=== PATIENT | male | born 1975 | race Caucasian/White ===

== ENCOUNTER 2018-12-24 01:48 | Inpatient (IN) | payer SELFPAY ==
[~2018-12-24] VITALS: Ht 175.3 cm; Wt 85.0 kg
[2018-12-24] MEDS ORDERED: IV NORMAL SALINE 1000ML BAG 1,000 ML IV ONE (02:15)
[2018-12-24 02:16] LABS: BASO % 0 % (0-3); EOS % 0 % (0-3); HEMATOCRIT 40.3 % (39.0-53.0); HEMOGLOBIN 12.9 g/dL (13.0-17.5); LYMPH # 1.1 x10^3/uL (1.0-4.8); LYMPH % 10 % (24-48); MEAN CORPUSCULAR HEMOGLOBIN 19 pg (25-35); MEAN CORPUSCULAR HGB CONC 32 g/dL (31-37); MEAN CORPUSCULAR VOLUME 59 fL (79-100); MONO # 0.7 x10^3/uL (0.0-1.1); MONO % 6 % (0-9); NEUT # 9.4 x10^3uL (1.8-7.7); NEUT % 84 % (31-73); PLATELET COUNT 171 x10^3/uL (140-400); RED BLOOD COUNT 6.78 x10^6/uL (4.30-5.70); RED CELL DISTRIBUTION WIDTH 16.4 % (11.5-14.5); WHITE BLOOD COUNT 11.2 x10^3/uL (4.0-11.0)
[2018-12-24 02:28] LABS: ALBUMIN 4.4 g/dL (3.4-5.0); ALBUMIN/GLOBULIN RATIO 1.2 (1.0-1.7); CALCIUM 11.1 mg/dL (8.5-10.1); CREATININE 0.7 mg/dL (0.7-1.3); GFR 123.7; TOTAL BILIRUBIN 5.6 mg/dL (0.2-1.0)
[2018-12-24 02:30] LABS: POTASSIUM 2.8 mmol/L (3.5-5.1)
[2018-12-24 02:43] LABS: ANISOCYTOSIS SLIGHT; HYPOCHROMIA MARKED; MICROCYTOSIS MARKED; PLT ESTIMATE ADEQUATE (ADEQUATE); POLYCHROMASIA SLIGHT
[2018-12-24 02:44] LABS: TARGET CELLS OCC; TEAR DROP CELLS FEW
[2018-12-24] MEDS ORDERED: MORPHINE SULFATE 4 MG/ML VIAL. IV PRN (03:30)
[2018-12-24] MEDS ORDERED: LORazepam 1 MG TABLET PO PRN (03:30)
[2018-12-24] MEDS ORDERED: cloNIDine HCL 0.1 MG TABLET PO PRN (03:30)
[2018-12-24] MEDS ORDERED: ONDANSETRON PF 4 MG/2 ML VIAL. IV PRN (03:30)
[2018-12-24] MEDS ORDERED: chlordiazePOXIDE HCL 25 MG CAPSULE PO PRN ×2 (03:30)
[2018-12-24] MEDS ORDERED: MULTIVIT INFUSN,ADULT 4,VIT K 10 ML, THIAMINE INJ 100 MG, FOLIC ACID INJ 1 MG in IV NOR... IV ONE (03:30)
[2018-12-24] MEDS ORDERED: HALOPERIDOL LACTATE 5 MG/ML VIAL. IVP PRN (03:30)
[2018-12-24] MEDS ORDERED: POTASSIUM CHLORIDE 10MEQ 100 ML IV ONE (03:30)
--- NOTE | 2018-12-24 03:47 | PHYS DOC ---
Past Medical History Past Medical History: Hypertension Additional Past Medical Histor: NON COMPLIANT Past Surgical History: No Surgical History Additional Information: CHEWS TOBACCO Alcohol Use: Heavy Drug Use: None Adult General Chief Complaint Chief Complaint: ALCOHOL INTOXICATION HPI HPI 43-year-old male presents with a chief complaint of of nausea vomiting AND hallucination. Patient states he is on day 3 of sobriety. Patient was on a 6 day binge of vodka. Review of Systems Review of Systems Constitutional: Denies fever or chills [] Eyes: Denies change in visual acuity, redness, or eye pain [] HENT: Denies nasal congestion or sore throat [] Respiratory: Denies cough or shortness of breath [] Cardiovascular: No additional information not addressed in HPI [] GI: Denies abdominal pain, nausea, vomiting, bloody stools or diarrhea [] : Denies dysuria or hematuria [] Musculoskeletal: Denies back pain or joint pain [] Integument: Denies rash or skin lesions [] Neurologic: Denies headache, focal weakness or sensory changes [] Endocrine: Denies polyuria or polydipsia [] All other systems were reviewed and found to be within normal limits, except as documented in this note. Current Medications Current Medications Current Medications Medications (Trade) Dose Ordered Sig/Rama Start Time Stop Time Status Last Admin Dose Admin Chlordiazepoxide (Librium) 100 mg PRN Q1HR PRN 12/24/18 03:30 Clonidine HCl (Catapres) 0.1 mg PRN Q1HR PRN 12/24/18 03:30 Haloperidol Lactate (Haldol Inj) 5 mg PRN Q4HRS PRN 12/24/18 03:30 Lorazepam (Ativan) 4 mg PRN Q15MIN PRN 12/24/18 03:30 Morphine Sulfate (Morphine Sulfate) 2 mg PRN Q2HR PRN 12/24/18 03:30 12/25/18 03:29 Multivitamins 10 ml/Thiamine HCl 100 mg/Folic Acid 1 mg/Sodium Chloride 1,011.2 ml @ 1,000.088 mls/hr 1X ONCE 12/24/18 03:30 12/24/18 04:30 Ondansetron HCl (Zofran) 4 mg PRN Q8HRS PRN 12/24/18 03:30 12/25/18 03:29 Potassium Chloride/Water 100 ml @ 100 mls/hr 1X ONCE 12/24/18 03:30 12/24/18 04:29 12/24/18 03:41 100 MLS/HR Sodium Chloride 1,000 ml @ 1,000 mls/hr 1X ONCE 12/24/18 02:15 12/24/18 03:14 DC 12/24/18 02:12 1,000 MLS/HR Allergies Allergies Allergies Coded Allergies Type Severity Reaction Last Updated Verified No Known Drug Allergies 12/24/18 No Physical Exam Physical Exam Constitutional: Well developed, well nourished, no acute distress, non-toxic appearance. [] HENT: Normocephalic, atraumatic, bilateral external ears normal, oropharynx moist, no oral exudates, nose normal. [] Eyes: PERRLA, EOMI, conjunctiva normal, no discharge. [] Neck: Normal range of motion, no tenderness, supple, no stridor. [] Cardiovascular:Heart rate regular rhythm, no murmur [] Lungs & Thorax: Bilateral breath sounds clear to auscultation [] Abdomen: Bowel sounds normal, soft, no tenderness, no masses, no pulsatile masses. [] Skin: Warm, dry, no erythema, no rash. [] Back: No tenderness, no CVA tenderness. [] Extremities: No tenderness, no cyanosis, no clubbing, ROM intact, no edema. [] Neurologic: Alert and oriented X 3, normal motor function, normal sensory function, no focal deficits noted. [] Psychologic: Affect normal, judgement normal, mood normal. [] Current Patient Data Vital Signs Vital Signs Date Time Temp Pulse Resp B/P (MAP) Pulse Ox O2 Delivery O2 Flow Rate FiO2 12/24/18 01:48 100.6 122 20 149/105 (120) 97 Room Air 100.6 Lab Values Laboratory Tests Test 12/24/18 02:00 White Blood Count 11.2 x10^3/uL (4.0-11.0) H Red Blood Count 6.78 x10^6/uL (4.30-5.70) H Hemoglobin 12.9 g/dL (13.0-17.5) L Hematocrit 40.3 % (39.0-53.0) Mean Corpuscular Volume 59 fL (79-100) L Mean Corpuscular Hemoglobin 19 pg (25-35) L Mean Corpuscular Hemoglobin Concent 32 g/dL (31-37) Red Cell Distribution Width 16.4 % (11.5-14.5) H Platelet Count 171 x10^3/uL (140-400) Neutrophils (%) (Auto) 84 % (31-73) H Lymphocytes (%) (Auto) 10 % (24-48) L Monocytes (%) (Auto) 6 % (0-9) Eosinophils (%) (Auto) 0 % (0-3) Basophils (%) (Auto) 0 % (0-3) Neutrophils # (Auto) 9.4 x10^3uL (1.8-7.7) H Lymphocytes # (Auto) 1.1 x10^3/uL (1.0-4.8) Monocytes # (Auto) 0.7 x10^3/uL (0.0-1.1) Eosinophils # (Auto) 0.0 x10^3/uL (0.0-0.7) Basophils # (Auto) 0.0 x10^3/uL (0.0-0.2) Platelet Estimate Adequate (ADEQUATE) Polychromasia Slight Hypochromasia Marked Basophilic Stippling Present Anisocytosis Slight Microcytosis Marked Target Cells Occ Tear Drop Cells Few Sodium Level 133 mmol/L (136-145) L Potassium Level 2.8 mmol/L (3.5-5.1) *L Chloride Level 89 mmol/L (98-107) L Carbon Dioxide Level 33 mmol/L (21-32) H Anion Gap 11 (6-14) Blood Urea Nitrogen 17 mg/dL (8-26) Creatinine 0.7 mg/dL (0.7-1.3) Estimated GFR (Cockcroft-Gault) 123.7 BUN/Creatinine Ratio 24 (6-20) H Glucose Level 149 mg/dL (70-99) H Calcium Level 11.1 mg/dL (8.5-10.1) H Total Bilirubin 5.6 mg/dL (0.2-1.0) H Aspartate Amino Transferase (AST) 111 U/L (15-37) H Alanine Aminotransferase (ALT) 52 U/L (16-63) Alkaline Phosphatase 84 U/L (46-116) Total Protein 8.0 g/dL (6.4-8.2) Albumin 4.4 g/dL (3.4-5.0) Albumin/Globulin Ratio 1.2 (1.0-1.7) Lipase 557 U/L (73-393) H Ethyl Alcohol Level < 10 mg/dL (0-10) Laboratory Tests 12/24/18 02:00 Laboratory Tests 12/24/18 02:00 EKG EKG [] Radiology/Procedures Radiology/Procedures [] Course & Med Decision Making Course & Med Decision Making Pertinent Labs and Imaging studies reviewed. (See chart for details) [] Dragon Disclaimer Dragon Disclaimer This electronic medical record was generated, in whole or in part, using a voice recognition dictation system. Departure Departure Referrals: NO PCP (PCP) MARCELLE GILLIAM DO Dec 24, 2018 03:47
[2018-12-24 06:00] VITALS: BP 171/110
[2018-12-24 06:48] LABS: AMPHETAMINE/METHAMPHETAMINE NEG (NEG); BARBITURATES NEG (NEG); BENZODIAZEPINES NEG (NEG); CANNABINOIDS NEG (NEG); COCAINE NEG (NEG); METHADONE NEG (NEG); OPIATES NEG (NEG); PHENCYCLIDINE NEG (NEG)
[2018-12-24 07:45] VITALS: BP 148/100
[2018-12-24] MEDS: LORazepam 1 MG TABLET PO PRN ×2 (07:57→22:00)
[2018-12-24 11:00] VITALS: BP 125/73
--- NOTE | 2018-12-24 12:24 | PDOC1 ---
History and Physical Date of Admission Date of Admission DATE: 12/24/18 TIME: 12:24 Identification/Chief Complaint Chief Complaint SEEN IN ER WITH chief complaint of of nausea vomiting AND hallucination. states he is on day 3 of sobriety. Patient was on a 6 day binge of vodka. IS SCHEDULED TO GO TO [facility] THIS WEEK FOR DUI LAST YEAR CURRENTLY WORKS A [employer] Past Medical History Past Medical History Past Medical History Past Medical History: Hypertension Additional Past Medical Histor: NON COMPLIANT Past Surgical History: No Surgical History Additional Information: CHEWS TOBACCO Alcohol Use: Heavy Drug Use: None FAMILY HX ALCOHOL ABUSE Psych: Anxiety, Addictions Endocrine: No pertinent hx Family History Family History: Alcohol Abuse Social History Smoke: <1 pack per day ALCOHOL: heavy Drugs: None Current Medications Current Medications Current Medications Sodium Chloride 1,000 ml @ 1,000 mls/hr 1X ONCE IV Last administered on at 02:12; Start 12/24/18 at 02:15; Stop 12/24/18 at 03:14; Status DC Multivitamins 10 ml/Thiamine HCl 100 mg/Folic Acid 1 mg/Sodium Chloride 1,011.2 ml @ 1,000.088 mls/hr 1X ONCE IV Last administered on 12/24/18at 05:41; Start 12/24/18 at 03:30; Stop 12/24/18 at 04:30; Status DC Potassium Chloride/Water 100 ml @ 100 mls/hr 1X ONCE IV Last administered on 12/24/18at 03:41; Start 12/24/18 at 03:30; Stop 12/24/18 at 04:29; Status DC Ondansetron HCl (Zofran) 4 mg PRN Q8HRS PRN IV NAUSEA/VOMITING; Start 12/24/18 at 03:30; Stop 12/25/18 at 03:29 Morphine Sulfate (Morphine Sulfate) 2 mg PRN Q2HR PRN IV PAIN; Start 12/24/18 at 03:30; Stop 12/25/18 at 03:29 Chlordiazepoxide (Librium) 50 mg PRN Q1HR PRN PO For CIWA 8-14, 2nd choice; Start 12/24/18 at 03:30 Chlordiazepoxide (Librium) 100 mg PRN Q1HR PRN PO For CIWA 15 or >, 2nd choice ; Start 12/24/18 at 03:30 Lorazepam (Ativan) 4 mg PRN Q1HR PRN PO For CIWA 8-14 Last administered on 12/24at 07:57; Start 12/24/18 at 03:30 Lorazepam (Ativan) 8 mg PRN Q1HR PRN PO For CIWA 15 or greater; Start 12/24/18 at 03:30 Lorazepam (Ativan) 2 mg PRN Q1HR PRN IV For CIWA 8-14; Start 12/24/18 at 03:30 Lorazepam (Ativan) 4 mg PRN Q1HR PRN IV For CIWA 15 or greater; Start 12/24/18 at 03:30 Haloperidol Lactate (Haldol Inj) 5 mg PRN Q4HRS PRN IVP Hallucinatns,Confusn, Delirium; Start 12/24/18 at 03:30 Clonidine HCl (Catapres) 0.1 mg PRN Q1HR PRN PO SBP > 180 or DBP > 100, MRX3 Last administered on 12/24/18at 06:23; Start 12/24/18 at 03:30 Lorazepam (Ativan) 2 mg PRN Q15MIN PRN IV ANXIETY / AGITATION; Start 12/24/18 at 03:30; Status Cancel Lorazepam (Ativan) 4 mg PRN Q15MIN PRN IV ANXIETY / AGITATION; Start 12/24/18 at 03:30; Status Cancel Allergies Allergies: Coded Allergies: No Known Drug Allergies (Unverified , 12/24/18) ROS Review of System Review of Systems Review of Systems Constitutional: Denies fever or chills [] lethargic lying in bed Eyes: Denies change in visual acuity, redness, or eye pain [] HENT: Denies nasal congestion or sore throat [] Respiratory: Denies cough or shortness of breath [] Cardiovascular: No additional information not addressed in HPI [] GI: Denies abdominal pain, nausea, vomiting, bloody stools or diarrhea [] : Denies dysuria or hematuria [] Musculoskeletal: Denies back pain or joint pain [] Integument: Denies rash or skin lesions [] Neurologic: Denies headache, focal weakness or sensory changes [] Endocrine: Denies polyuria or polydipsia [] 14 pt systems were reviewed and found to be within normal limits, except as documented General: YES: Fatigue, Malaise PSYCHOLOGICAL ROS: YES: Hallucinations HEENT: No: Heacaches, Visual Changes, Hearing change, Nasal congestion, Nasal discharge, Oral lesions, Sinus pain, Sore Throat, Epistaxis, Sneezing, Snoring, Tinnitus, Vertigo, Vocal changes, Other ALLERGY AND IMMUNOLOGY: No: Hives, Insect Bite Sensitivity, Itchy/Watery Eyes, Nasal Congestion, Post Nasal Drip, Seasonal Allergies, Other Respiratory: No: Cough, Hemoptysis, Orthopnea, Pleuritic Pain, Shortness of breath, SOB with excertion, Sputum Changes, Stridor, Tachypnea, Wheezing, Other Gastrointestinal: Yes Nausea Musculoskeletal: Yes Gait Disturbance Neurological: Yes Confusion, Yes Dizziness Physical Exam Physical Exam Physical Exam Physical Exam Constitutional: Well developed, well nourished, mild acute distress, non-toxic appearance. [] HENT: Normocephalic, atraumatic, bilateral external ears normal, oropharynx moist, no oral exudates, nose normal. [] Eyes: PERRLA, EOMI, conjunctiva normal, no discharge. [] Neck: Normal range of motion, no tenderness, supple, no stridor. [] Cardiovascular:tachy regular rhythm, no murmur [] Lungs & Thorax: Bilateral breath sounds clear to auscultation [] Abdomen: Bowel sounds normal, soft, no tenderness, no masses, no pulsatile masses. [] Skin: Warm, dry, no erythema, no rash. [] Back: No tenderness, no CVA tenderness. [] Extremities: No tenderness, no cyanosis, no clubbing, ROM intact, no edema. [] Neurologic: Alert and oriented X 3, normal motor function, normal sensory function, no focal deficits noted. [] Psychologic: Affect normal, judgement poor, mood normal. [] General: Oriented X3 HEENT: Atraumatic Lungs: Clear to auscultation Heart: RRR, no rubs Abdomen: Soft Extremities: No clubbing, No cyanosis Neuro: Normal speech, Cranial nerves 3-12 NL Vitals Vitals Vital Signs Date Time Temp Pulse Resp B/P (MAP) Pulse Ox O2 Delivery O2 Flow Rate FiO2 12/24/18 11:00 97.6 86 18 125/73 (90) 96 Room Air 97.6 Labs Labs Laboratory Tests Test 12/24/18 02:00 12/24/18 06:25 White Blood Count 11.2 x10^3/uL (4.0-11.0) Red Blood Count 6.78 x10^6/uL (4.30-5.70) Hemoglobin 12.9 g/dL (13.0-17.5) Hematocrit 40.3 % (39.0-53.0) Mean Corpuscular Volume 59 fL (79-100) Mean Corpuscular Hemoglobin 19 pg (25-35) Mean Corpuscular Hemoglobin Concent 32 g/dL (31-37) Red Cell Distribution Width 16.4 % (11.5-14.5) Platelet Count 171 x10^3/uL (140-400) Neutrophils (%) (Auto) 84 % (31-73) Lymphocytes (%) (Auto) 10 % (24-48) Monocytes (%) (Auto) 6 % (0-9) Eosinophils (%) (Auto) 0 % (0-3) Basophils (%) (Auto) 0 % (0-3) Neutrophils # (Auto) 9.4 x10^3uL (1.8-7.7) Lymphocytes # (Auto) 1.1 x10^3/uL (1.0-4.8) Monocytes # (Auto) 0.7 x10^3/uL (0.0-1.1) Eosinophils # (Auto) 0.0 x10^3/uL (0.0-0.7) Basophils # (Auto) 0.0 x10^3/uL (0.0-0.2) Platelet Estimate Adequate (ADEQUATE) Polychromasia Slight Hypochromasia Marked Basophilic Stippling Present Anisocytosis Slight Microcytosis Marked Target Cells Occ Tear Drop Cells Few Sodium Level 133 mmol/L (136-145) Potassium Level 2.8 mmol/L (3.5-5.1) Chloride Level 89 mmol/L (98-107) Carbon Dioxide Level 33 mmol/L (21-32) Anion Gap 11 (6-14) Blood Urea Nitrogen 17 mg/dL (8-26) Creatinine 0.7 mg/dL (0.7-1.3) Estimated GFR (Cockcroft-Gault) 123.7 BUN/Creatinine Ratio 24 (6-20) Glucose Level 149 mg/dL (70-99) Calcium Level 11.1 mg/dL (8.5-10.1) Total Bilirubin 5.6 mg/dL (0.2-1.0) Aspartate Amino Transf (AST/SGOT) 111 U/L (15-37) Alanine Aminotransferase (ALT/SGPT) 52 U/L (16-63) Alkaline Phosphatase 84 U/L (46-116) Total Protein 8.0 g/dL (6.4-8.2) Albumin 4.4 g/dL (3.4-5.0) Albumin/Globulin Ratio 1.2 (1.0-1.7) Lipase 557 U/L (73-393) Ethyl Alcohol Level < 10 mg/dL (0-10) Urine Opiates Screen Neg (NEG) Urine Methadone Screen Neg (NEG) Urine Barbiturates Neg (NEG) Urine Phencyclidine Screen Neg (NEG) Urine Amphetamine/Methamphetamine Neg (NEG) Urine Benzodiazepines Screen Neg (NEG) Urine Cocaine Screen Neg (NEG) Urine Cannabinoids Screen Neg (NEG) Urine Ethyl Alcohol Neg (NEG) Laboratory Tests Test 12/24/18 02:00 12/24/18 06:25 White Blood Count 11.2 x10^3/uL (4.0-11.0) Red Blood Count 6.78 x10^6/uL (4.30-5.70) Hemoglobin 12.9 g/dL (13.0-17.5) Hematocrit 40.3 % (39.0-53.0) Mean Corpuscular Volume 59 fL (79-100) Mean Corpuscular Hemoglobin 19 pg (25-35) Mean Corpuscular Hemoglobin Concent 32 g/dL (31-37) Red Cell Distribution Width 16.4 % (11.5-14.5) Platelet Count 171 x10^3/uL (140-400) Neutrophils (%) (Auto) 84 % (31-73) Lymphocytes (%) (Auto) 10 % (24-48) Monocytes (%) (Auto) 6 % (0-9) Eosinophils (%) (Auto) 0 % (0-3) Basophils (%) (Auto) 0 % (0-3) Neutrophils # (Auto) 9.4 x10^3uL (1.8-7.7) Lymphocytes # (Auto) 1.1 x10^3/uL (1.0-4.8) Monocytes # (Auto) 0.7 x10^3/uL (0.0-1.1) Eosinophils # (Auto) 0.0 x10^3/uL (0.0-0.7) Basophils # (Auto) 0.0 x10^3/uL (0.0-0.2) Platelet Estimate Adequate (ADEQUATE) Polychromasia Slight Hypochromasia Marked Basophilic Stippling Present Anisocytosis Slight Microcytosis Marked Target Cells Occ Tear Drop Cells Few Sodium Level 133 mmol/L (136-145) Potassium Level 2.8 mmol/L (3.5-5.1) Chloride Level 89 mmol/L (98-107) Carbon Dioxide Level 33 mmol/L (21-32) Anion Gap 11 (6-14) Blood Urea Nitrogen 17 mg/dL (8-26) Creatinine 0.7 mg/dL (0.7-1.3) Estimated GFR (Cockcroft-Gault) 123.7 BUN/Creatinine Ratio 24 (6-20) Glucose Level 149 mg/dL (70-99) Calcium Level 11.1 mg/dL (8.5-10.1) Total Bilirubin 5.6 mg/dL (0.2-1.0) Aspartate Amino Transf (AST/SGOT) 111 U/L (15-37) Alanine Aminotransferase (ALT/SGPT) 52 U/L (16-63) Alkaline Phosphatase 84 U/L (46-116) Total Protein 8.0 g/dL (6.4-8.2) Albumin 4.4 g/dL (3.4-5.0) Albumin/Globulin Ratio 1.2 (1.0-1.7) Lipase 557 U/L (73-393) Ethyl Alcohol Level < 10 mg/dL (0-10) Urine Opiates Screen Neg (NEG) Urine Methadone Screen Neg (NEG) Urine Barbiturates Neg (NEG) Urine Phencyclidine Screen Neg (NEG) Urine Amphetamine/Methamphetamine Neg (NEG) Urine Benzodiazepines Screen Neg (NEG) Urine Cocaine Screen Neg (NEG) Urine Cannabinoids Screen Neg (NEG) Urine Ethyl Alcohol Neg (NEG) VTE Prophylaxis Ordered VTE Prophylaxis Devices: Yes VTE Pharmacological Prophylaxi: Yes Assessment/Plan Assessment/Plan IMPRESSION SEVERE ALCOHOL ABUSE AT RISK FOR DUE TO ALCOHOL INTAKE Alcohol associated with hepatitis severe hypokalemia transaminitis alcohol associated pancreatitis plan admit banana bag alcohol withdrawal precautions iv protonix tele neurochecks q 4 hrs hepatitis acute dx panel dvt prophylaxis iv hydrate abd SRAVAN Rosas MD Dec 24, 2018 12:24
--- NOTE | 2018-12-24 14:07 | NUR ---
SS following for discharge planning. SS reviewed pt chart. Pt is from home and is currently on room air. No discharge needs noted at this time. SS will continue to follow for pending discharge needs.
[2018-12-24 14:46] VITALS: BP 126/86
[2018-12-24 19:30] VITALS: BP 121/81
[2018-12-24 23:34] VITALS: BP 120/79
[2018-12-25 03:10] VITALS: BP 122/84
--- NOTE | 2018-12-25 03:33 | RAD ---
Indication:TRANSAMINITIS TECHNIQUE: Grayscale, color Doppler and spectral waveform is of the abdomen obtained. COMPARISON:None FINDINGS:Visualized pancreas is within normal limits. Pancreatic tail not visualized during bowel gas. No aortic aneurysm. No gallstones, pericholecystic fluid or gallbladder wall thickening. IVC is patent. Main portal vein is patent. Liver measures 15 cm in longest dimension with diffusely increased echogenicity. Right kidney measures 13.4 cm in length without hydronephrosis. CBD measures 4 mm in diameter and is within normal limits. Spleen measures 12 cm in longest dimension and is normal in size. Left kidney measures 12.2 cm in length without hydronephrosis. IMPRESSION: 1. Hepatic steatosis. 2. No cholelithiasis or sonographic evidence of acute cholecystitis. Electronically signed by: Yfn Stewart DO (12/25/2018 3:30 AM) [facility]
[2018-12-25 04:53] LABS: BASO # 0.1 x10^3/uL (0.0-0.2); BASO % 1 % (0-3); EOS # 0.1 x10^3/uL (0.0-0.7); EOS % 2 % (0-3); HEMATOCRIT 35.8 % (39.0-53.0); HEMOGLOBIN 11.4 g/dL (13.0-17.5); LYMPH # 2.8 x10^3/uL (1.0-4.8); LYMPH % 33 % (24-48); MEAN CORPUSCULAR HEMOGLOBIN 19 pg (25-35); MEAN CORPUSCULAR HGB CONC 32 g/dL (31-37); MEAN CORPUSCULAR VOLUME 60 fL (79-100); MONO # 0.5 x10^3/uL (0.0-1.1); MONO % 6 % (0-9); NEUT # 4.9 x10^3uL (1.8-7.7); NEUT % 58 % (31-73); PLATELET COUNT 124 x10^3/uL (140-400); RED BLOOD COUNT 5.92 x10^6/uL (4.30-5.70); RED CELL DISTRIBUTION WIDTH 16.5 % (11.5-14.5); WHITE BLOOD COUNT 8.4 x10^3/uL (4.0-11.0)
[2018-12-25 05:11] LABS: ALBUMIN 3.5 g/dL (3.4-5.0); ALBUMIN/GLOBULIN RATIO 1.1 (1.0-1.7); CALCIUM 8.6 mg/dL (8.5-10.1); CREATININE 0.8 mg/dL (0.7-1.3); TOTAL BILIRUBIN 2.5 mg/dL (0.2-1.0); TOTAL PROTEIN 6.6 g/dL (6.4-8.2)
[2018-12-25 05:16] LABS: POTASSIUM 2.8 mmol/L (3.5-5.1)
[2018-12-25 07:00] VITALS: BP 119/81
[2018-12-25] MEDS ORDERED: POTASSIUM CHLORIDE 20 MEQ TABLET.ER. PO ONE ×4 (08:00→12:00)
--- NOTE | 2018-12-25 10:18 | PDOC ---
PROGRESS NOTES History of Present Illness History of Present Illness Assessment/Plan IMPRESSION SEVERE ALCOHOL ABUSE AT RISK FOR DUE TO SEVERE CHRONIC ALCOHOL INTAKE Alcohol associated with hepatitis severe hypokalemia transaminitis alcohol associated pancreatitis MICROCYTOSIS THROMBOCYTOSIS plan admit banana bag alcohol withdrawal precautions iv protonix tele neurochecks q 4 hrs hepatitis acute dx panel dvt prophylaxis iv hydrate abd sono HGB ELECTROPHORESIS requested Vitals Vitals Vital Signs Date Time Temp Pulse Resp B/P (MAP) Pulse Ox O2 Delivery O2 Flow Rate FiO2 12/25/18 07:00 98.0 95 18 119/81 (94) 99 Room Air 98.0 Physical Exam Physical Exam Neck: Normal range of motion, no tenderness, supple, no stridor. [] Cardiovascular:tachy regular rhythm, no murmur [] Lungs & Thorax: Bilateral breath sounds clear to auscultation [] Abdomen: Bowel sounds normal, soft, no tenderness, no masses, no pulsatile masses. [] Skin: Warm, dry, no erythema, no rash. [] Back: No tenderness, no CVA tenderness. [] Extremities: No tenderness, no cyanosis, no clubbing, ROM intact, no edema. [] Neurologic: Alert and oriented X 3, normal motor function, normal sensory function, no focal deficits noted. [] Psychologic: Affect normal, judgement poor, mood normal. [] General: Oriented X3 HEENT: Atraumatic Lungs: Clear to auscultation Heart: RRR, no rubs Abdomen: Soft Extremities: No clubbing, No cyanosis Neuro: Normal speech, Cranial nerves 3-12 NL plts lower indices microcytic General: Alert, Oriented X3, mild distress Heart: Regular rate, No murmurs Lungs: Clear Abdomen: Normal bowel sounds, Soft, No masses Extremities: No clubbing, No cyanosis, No edema Skin: No breakdown Labs LABS STATUS: ADM IN ORD. PHYSICIAN: SRAVAN SILVA MD REASON: ELEVATED LFTS, TRANSAMINITIS PROCEDURE: ABDOMEN COMPLETE Indication:TRANSAMINITIS TECHNIQUE: Grayscale, color Doppler and spectral waveform is of the abdomen obtained. COMPARISON:None FINDINGS:Visualized pancreas is within normal limits. Pancreatic tail not visualized during bowel gas. No aortic aneurysm. No gallstones, pericholecystic fluid or gallbladder wall thickening. IVC is patent. Main portal vein is patent. Liver measures 15 cm in longest dimension with diffusely increased echogenicity. Right kidney measures 13.4 cm in length without hydronephrosis. CBD measures 4 mm in diameter and is within normal limits. Spleen measures 12 cm in longest dimension and is normal in size. Left kidney measures 12.2 cm in length without hydronephrosis. IMPRESSION: 1. Hepatic steatosis. 2. No cholelithiasis or sonographic evidence of acute cholecystitis. Electronically signed by: Yfn Stewart DO (12/25/2018 3:30 AM) [facility] Laboratory Tests Test 12/25/18 04:15 White Blood Count 8.4 x10^3/uL (4.0-11.0) Red Blood Count 5.92 x10^6/uL (4.30-5.70) Hemoglobin 11.4 g/dL (13.0-17.5) Hematocrit 35.8 % (39.0-53.0) Mean Corpuscular Volume 60 fL (79-100) Mean Corpuscular Hemoglobin 19 pg (25-35) Mean Corpuscular Hemoglobin Concent 32 g/dL (31-37) Red Cell Distribution Width 16.5 % (11.5-14.5) Platelet Count 124 x10^3/uL (140-400) Neutrophils (%) (Auto) 58 % (31-73) Lymphocytes (%) (Auto) 33 % (24-48) Monocytes (%) (Auto) 6 % (0-9) Eosinophils (%) (Auto) 2 % (0-3) Basophils (%) (Auto) 1 % (0-3) Neutrophils # (Auto) 4.9 x10^3uL (1.8-7.7) Lymphocytes # (Auto) 2.8 x10^3/uL (1.0-4.8) Monocytes # (Auto) 0.5 x10^3/uL (0.0-1.1) Eosinophils # (Auto) 0.1 x10^3/uL (0.0-0.7) Basophils # (Auto) 0.1 x10^3/uL (0.0-0.2) Sodium Level 141 mmol/L (136-145) Potassium Level 2.8 mmol/L (3.5-5.1) Chloride Level 100 mmol/L (98-107) Carbon Dioxide Level 30 mmol/L (21-32) Anion Gap 11 (6-14) Blood Urea Nitrogen 20 mg/dL (8-26) Creatinine 0.8 mg/dL (0.7-1.3) Estimated GFR (Cockcroft-Gault) 106.0 BUN/Creatinine Ratio 25 (6-20) Glucose Level 91 mg/dL (70-99) Calcium Level 8.6 mg/dL (8.5-10.1) Iron Level 52 ug/dL (65-175) Total Iron Binding Capacity 214 ug/dL (250-450) Iron Saturation 24 % (15-34) Total Bilirubin 2.5 mg/dL (0.2-1.0) Aspartate Amino Transf (AST/SGOT) 145 U/L (15-37) Alanine Aminotransferase (ALT/SGPT) 92 U/L (16-63) Alkaline Phosphatase 72 U/L (46-116) Total Protein 6.6 g/dL (6.4-8.2) Albumin 3.5 g/dL (3.4-5.0) Albumin/Globulin Ratio 1.1 (1.0-1.7) Comment Review of Relevant I have reviewed the following items romie (where applicable) has been applied. Labs Laboratory Tests Test 12/24/18 02:00 12/24/18 06:25 12/25/18 04:15 White Blood Count 11.2 x10^3/uL (4.0-11.0) 8.4 x10^3/uL (4.0-11.0) Red Blood Count 6.78 x10^6/uL (4.30-5.70) 5.92 x10^6/uL (4.30-5.70) Hemoglobin 12.9 g/dL (13.0-17.5) 11.4 g/dL (13.0-17.5) Hematocrit 40.3 % (39.0-53.0) 35.8 % (39.0-53.0) Mean Corpuscular Volume 59 fL (79-100) 60 fL (79-100) Mean Corpuscular Hemoglobin 19 pg (25-35) 19 pg (25-35) Mean Corpuscular Hemoglobin Concent 32 g/dL (31-37) 32 g/dL (31-37) Red Cell Distribution Width 16.4 % (11.5-14.5) 16.5 % (11.5-14.5) Platelet Count 171 x10^3/uL (140-400) 124 x10^3/uL (140-400) Neutrophils (%) (Auto) 84 % (31-73) 58 % (31-73) Lymphocytes (%) (Auto) 10 % (24-48) 33 % (24-48) Monocytes (%) (Auto) 6 % (0-9) 6 % (0-9) Eosinophils (%) (Auto) 0 % (0-3) 2 % (0-3) Basophils (%) (Auto) 0 % (0-3) 1 % (0-3) Neutrophils # (Auto) 9.4 x10^3uL (1.8-7.7) 4.9 x10^3uL (1.8-7.7) Lymphocytes # (Auto) 1.1 x10^3/uL (1.0-4.8) 2.8 x10^3/uL (1.0-4.8) Monocytes # (Auto) 0.7 x10^3/uL (0.0-1.1) 0.5 x10^3/uL (0.0-1.1) Eosinophils # (Auto) 0.0 x10^3/uL (0.0-0.7) 0.1 x10^3/uL (0.0-0.7) Basophils # (Auto) 0.0 x10^3/uL (0.0-0.2) 0.1 x10^3/uL (0.0-0.2) Platelet Estimate Adequate (ADEQUATE) Polychromasia Slight Hypochromasia Marked Basophilic Stippling Present Anisocytosis Slight Microcytosis Marked Target Cells Occ Tear Drop Cells Few Sodium Level 133 mmol/L (136-145) 141 mmol/L (136-145) Potassium Level 2.8 mmol/L (3.5-5.1) 2.8 mmol/L (3.5-5.1) Chloride Level 89 mmol/L (98-107) 100 mmol/L (98-107) Carbon Dioxide Level 33 mmol/L (21-32) 30 mmol/L (21-32) Anion Gap 11 (6-14) 11 (6-14) Blood Urea Nitrogen 17 mg/dL (8-26) 20 mg/dL (8-26) Creatinine 0.7 mg/dL (0.7-1.3) 0.8 mg/dL (0.7-1.3) Estimated GFR (Cockcroft-Gault) 123.7 106.0 BUN/Creatinine Ratio 24 (6-20) 25 (6-20) Glucose Level 149 mg/dL (70-99) 91 mg/dL (70-99) Calcium Level 11.1 mg/dL (8.5-10.1) 8.6 mg/dL (8.5-10.1) Total Bilirubin 5.6 mg/dL (0.2-1.0) 2.5 mg/dL (0.2-1.0) Aspartate Amino Transf (AST/SGOT) 111 U/L (15-37) 145 U/L (15-37) Alanine Aminotransferase (ALT/SGPT) 52 U/L (16-63) 92 U/L (16-63) Alkaline Phosphatase 84 U/L (46-116) 72 U/L (46-116) Total Protein 8.0 g/dL (6.4-8.2) 6.6 g/dL (6.4-8.2) Albumin 4.4 g/dL (3.4-5.0) 3.5 g/dL (3.4-5.0) Albumin/Globulin Ratio 1.2 (1.0-1.7) 1.1 (1.0-1.7) Lipase 557 U/L (73-393) Ethyl Alcohol Level < 10 mg/dL (0-10) Hepatitis A IgM Antibody Nonreactive (Nonreactive) Hepatitis B Surface Antigen Nonreactive (Nonreactive) Hepatitis B Core IgM Antibody Nonreactive (Nonreactive) Hepatitis C IgG Antibody Nonreactive (Nonreactive) Urine Opiates Screen Neg (NEG) Urine Methadone Screen Neg (NEG) Urine Barbiturates Neg (NEG) Urine Phencyclidine Screen Neg (NEG) Urine Amphetamine/Methamphetamine Neg (NEG) Urine Benzodiazepines Screen Neg (NEG) Urine Cocaine Screen Neg (NEG) Urine Cannabinoids Screen Neg (NEG) Urine Ethyl Alcohol Neg (NEG) Iron Level 52 ug/dL (65-175) Total Iron Binding Capacity 214 ug/dL (250-450) Iron Saturation 24 % (15-34) Laboratory Tests Test 12/25/18 04:15 White Blood Count 8.4 x10^3/uL (4.0-11.0) Red Blood Count 5.92 x10^6/uL (4.30-5.70) Hemoglobin 11.4 g/dL (13.0-17.5) Hematocrit 35.8 % (39.0-53.0) Mean Corpuscular Volume 60 fL (79-100) Mean Corpuscular Hemoglobin 19 pg (25-35) Mean Corpuscular Hemoglobin Concent 32 g/dL (31-37) Red Cell Distribution Width 16.5 % (11.5-14.5) Platelet Count 124 x10^3/uL (140-400) Neutrophils (%) (Auto) 58 % (31-73) Lymphocytes (%) (Auto) 33 % (24-48) Monocytes (%) (Auto) 6 % (0-9) Eosinophils (%) (Auto) 2 % (0-3) Basophils (%) (Auto) 1 % (0-3) Neutrophils # (Auto) 4.9 x10^3uL (1.8-7.7) Lymphocytes # (Auto) 2.8 x10^3/uL (1.0-4.8) Monocytes # (Auto) 0.5 x10^3/uL (0.0-1.1) Eosinophils # (Auto) 0.1 x10^3/uL (0.0-0.7) Basophils # (Auto) 0.1 x10^3/uL (0.0-0.2) Sodium Level 141 mmol/L (136-145) Potassium Level 2.8 mmol/L (3.5-5.1) Chloride Level 100 mmol/L (98-107) Carbon Dioxide Level 30 mmol/L (21-32) Anion Gap 11 (6-14) Blood Urea Nitrogen 20 mg/dL (8-26) Creatinine 0.8 mg/dL (0.7-1.3) Estimated GFR (Cockcroft-Gault) 106.0 BUN/Creatinine Ratio 25 (6-20) Glucose Level 91 mg/dL (70-99) Calcium Level 8.6 mg/dL (8.5-10.1) Iron Level 52 ug/dL (65-175) Total Iron Binding Capacity 214 ug/dL (250-450) Iron Saturation 24 % (15-34) Total Bilirubin 2.5 mg/dL (0.2-1.0) Aspartate Amino Transf (AST/SGOT) 145 U/L (15-37) Alanine Aminotransferase (ALT/SGPT) 92 U/L (16-63) Alkaline Phosphatase 72 U/L (46-116) Total Protein 6.6 g/dL (6.4-8.2) Albumin 3.5 g/dL (3.4-5.0) Albumin/Globulin Ratio 1.1 (1.0-1.7) Medications Current Medications Sodium Chloride 1,000 ml @ 1,000 mls/hr 1X ONCE IV Last administered on at 02:12; Start 12/24/18 at 02:15; Stop 12/24/18 at 03:14; Status DC Multivitamins 10 ml/Thiamine HCl 100 mg/Folic Acid 1 mg/Sodium Chloride 1,011.2 ml @ 1,000.088 mls/hr 1X ONCE IV Last administered on 12/24/18at 05:41; Start 12/24/18 at 03:30; Stop 12/24/18 at 04:30; Status DC Potassium Chloride/Water 100 ml @ 100 mls/hr 1X ONCE IV Last administered on 12/24/18at 03:41; Start 12/24/18 at 03:30; Stop 12/24/18 at 04:29; Status DC Ondansetron HCl (Zofran) 4 mg PRN Q8HRS PRN IV NAUSEA/VOMITING; Start 12/24/18 at 03:30; Stop 12/25/18 at 03:29; Status DC Morphine Sulfate (Morphine Sulfate) 2 mg PRN Q2HR PRN IV PAIN; Start 12/24/18 at 03:30; Stop 12/25/18 at 03:29; Status DC Chlordiazepoxide (Librium) 50 mg PRN Q1HR PRN PO For CIWA 8-14, 2nd choice; Start 12/24/18 at 03:30 Chlordiazepoxide (Librium) 100 mg PRN Q1HR PRN PO For CIWA 15 or >, 2nd choice ; Start 12/24/18 at 03:30 Lorazepam (Ativan) 4 mg PRN Q1HR PRN PO For CIWA 8-14 Last administered on 12/24at 22:00; Start 12/24/18 at 03:30 Lorazepam (Ativan) 8 mg PRN Q1HR PRN PO For CIWA 15 or greater; Start 12/24/18 at 03:30 Lorazepam (Ativan) 2 mg PRN Q1HR PRN IV For CIWA 8-14; Start 12/24/18 at 03:30 Lorazepam (Ativan) 4 mg PRN Q1HR PRN IV For CIWA 15 or greater; Start 12/24/18 at 03:30 Haloperidol Lactate (Haldol Inj) 5 mg PRN Q4HRS PRN IVP Hallucinatns,Confusn, Delirium; Start 12/24/18 at 03:30 Clonidine HCl (Catapres) 0.1 mg PRN Q1HR PRN PO SBP > 180 or DBP > 100, MRX3 Last administered on 12/24/18at 06:23; Start 12/24/18 at 03:30 Lorazepam (Ativan) 2 mg PRN Q15MIN PRN IV ANXIETY / AGITATION; Start 12/24/18 at 03:30; Status Cancel Lorazepam (Ativan) 4 mg PRN Q15MIN PRN IV ANXIETY / AGITATION; Start 12/24/18 at 03:30; Status Cancel Potassium Chloride (Klor-Con) 40 meq 1X ONCE PO Last administered on at 08:56; Start 12/25/18 at 08:00; Stop 12/25/18 at 08:01; Status DC Potassium Chloride (Klor-Con) 40 meq 1X ONCE PO ; Start 12/25/18 at 12:00; Stop 12/25/18 at 12:01 Vitals/I & O Vital Sign - Last 24 Hours 12/24/18 12/24/18 12/24/18 12/24/18 11:00 14:46 19:30 20:00 Temp 97.6 98.3 97.9 97.6 98.3 97.9 Pulse 86 93 108 Resp 18 20 18 B/P (MAP) 125/73 (90) 126/86 (99) 121/81 (94) Pulse Ox 96 98 94 O2 Delivery Room Air Room Air Room Air Room Air 12/24/18 12/25/18 12/25/18 23:34 03:10 07:00 Temp 97.8 97.8 98.0 97.8 97.8 98.0 Pulse 102 98 95 Resp 16 18 18 B/P (MAP) 120/79 (93) 122/84 (97) 119/81 (94) Pulse Ox 98 97 99 O2 Delivery Room Air Room Air Room Air Intake and Output 12/24/18 12/24/18 12/25/18 14:59 22:59 06:59 Intake Total 240 ml 200 ml Output Total 1 ml 550 ml 600 ml Balance 239 ml -550 ml -400 ml SRAVAN SILVA MD Dec 25, 2018 10:17
[2018-12-25 11:00] VITALS: BP 129/79
--- NOTE | 2018-12-25 11:11 | NUR ---
SS following up with discharge planning. PAT team contacted for alcohol abuse. Aquiles from PAT team assessing pt and providing resources.
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
--- NOTE | 2018-12-25 11:49 | NUR ---
SS following up with discharge planning. Pt assessed by Aquiles from the PAT team. Aquiles reported that pt is ordered to report from the hospital to [facility] for six weeks for DUI and that [facility] can see pt in [facility] and set up services for treatment. Pt's RN notified.
[2018-12-25] MEDS: LORazepam 1 MG TABLET PO PRN ×2 (12:44→20:06)
[2018-12-25] MEDS ORDERED: MULTIVIT INFUSN,ADULT 4,VIT K 10 ML, THIAMINE INJ 100 MG, FOLIC ACID INJ 1 MG in IV NOR... IV ONE (13:30)
[2018-12-25 15:00] VITALS: BP 133/81
[2018-12-25 19:25] VITALS: BP 140/87
[2018-12-25 23:35] VITALS: BP 133/86
[2018-12-26] MEDS: LORazepam 1 MG TABLET PO PRN (02:17)
[2018-12-26 03:30] VITALS: BP 146/69
[2018-12-26 03:35] VITALS: BP 119/77
[2018-12-26 05:21] LABS: BASO % 1 % (0-3); EOS # 0.2 x10^3/uL (0.0-0.7); EOS % 2 % (0-3); HEMOGLOBIN 11.1 g/dL (13.0-17.5); LYMPH # 2.7 x10^3/uL (1.0-4.8); LYMPH % 32 % (24-48); MEAN CORPUSCULAR HEMOGLOBIN 20 pg (25-35); MEAN CORPUSCULAR HGB CONC 33 g/dL (31-37); MEAN CORPUSCULAR VOLUME 61 fL (79-100); MONO # 0.6 x10^3/uL (0.0-1.1); MONO % 7 % (0-9); NEUT # 4.7 x10^3uL (1.8-7.7); NEUT % 58 % (31-73); PLATELET COUNT 143 x10^3/uL (140-400); RED CELL DISTRIBUTION WIDTH 16.9 % (11.5-14.5); WHITE BLOOD COUNT 8.2 x10^3/uL (4.0-11.0)
[2018-12-26 05:34] LABS: ALBUMIN 3.4 g/dL (3.4-5.0); ALBUMIN/GLOBULIN RATIO 1.1 (1.0-1.7); CALCIUM 8.9 mg/dL (8.5-10.1); CREATININE 0.7 mg/dL (0.7-1.3); GFR 123.7; POTASSIUM 3.1 mmol/L (3.5-5.1); TOTAL BILIRUBIN 1.7 mg/dL (0.2-1.0); TOTAL PROTEIN 6.6 g/dL (6.4-8.2)
[2018-12-26 07:00] VITALS: BP 132/78
[2018-12-26] MEDS ORDERED: POTASSIUM CHLORIDE 20 MEQ TABLET.ER. PO SCH ×2 (08:00→09:00)
[2018-12-26 08:15] LABS: % BANDS 1 % (0-9); % BASOS 1 % (0-3); % EOS 4 % (0-5); % LYMPHS 47 % (24-48); % MONOS 3 % (0-10); % SEGS 44 % (35-66); NUCLEATED RBC 1; PLT ESTIMATE ADEQUATE (ADEQUATE)
[2018-12-26] MEDS ORDERED: CHLO1CAP PO (09:39)
[2018-12-26] MEDS ORDERED: POTA20TA4 PO (09:39)
--- NOTE | 2018-12-26 09:42 | PDOC3 ---
Discharge Summary Visit Information Date of Admission: Dec 24, 2018 Date of Discharge: Dec 26, 2018 Admitting Diagnosis Comment: SEVERE ALCOHOL ABUSE AT RISK FOR DUE TO SEVERE CHRONIC ALCOHOL INTAKE Alcohol associated with hepatitis severe hypokalemia transaminitis alcohol associated pancreatitis MICROCYTOSIS THROMBOCYTOSIS Brief Hospital Course Allergies Allergies Coded Allergies Type Severity Reaction Last Updated Verified No Known Drug Allergies 12/24/18 No Vital Signs Vital Signs Date Time Temp Pulse Resp B/P (MAP) Pulse Ox O2 Delivery O2 Flow Rate FiO2 12/26/18 07:00 98.3 103 17 132/78 (96) 98 Room Air 98.3 Lab Results Laboratory Tests Test 12/25/18 04:15 12/26/18 04:43 White Blood Count 8.4 x10^3/uL (4.0-11.0) 8.2 x10^3/uL (4.0-11.0) Red Blood Count 5.92 x10^6/uL (4.30-5.70) 5.60 x10^6/uL (4.30-5.70) Hemoglobin 11.4 g/dL (13.0-17.5) 11.1 g/dL (13.0-17.5) Hematocrit 35.8 % (39.0-53.0) 34.0 % (39.0-53.0) Mean Corpuscular Volume 60 fL (79-100) 61 fL (79-100) Mean Corpuscular Hemoglobin 19 pg (25-35) 20 pg (25-35) Mean Corpuscular Hemoglobin Concent 32 g/dL (31-37) 33 g/dL (31-37) Red Cell Distribution Width 16.5 % (11.5-14.5) 16.9 % (11.5-14.5) Platelet Count 124 x10^3/uL (140-400) 143 x10^3/uL (140-400) Neutrophils (%) (Auto) 58 % (31-73) 58 % (31-73) Lymphocytes (%) (Auto) 33 % (24-48) 32 % (24-48) Monocytes (%) (Auto) 6 % (0-9) 7 % (0-9) Eosinophils (%) (Auto) 2 % (0-3) 2 % (0-3) Basophils (%) (Auto) 1 % (0-3) 1 % (0-3) Neutrophils # (Auto) 4.9 x10^3uL (1.8-7.7) 4.7 x10^3uL (1.8-7.7) Lymphocytes # (Auto) 2.8 x10^3/uL (1.0-4.8) 2.7 x10^3/uL (1.0-4.8) Monocytes # (Auto) 0.5 x10^3/uL (0.0-1.1) 0.6 x10^3/uL (0.0-1.1) Eosinophils # (Auto) 0.1 x10^3/uL (0.0-0.7) 0.2 x10^3/uL (0.0-0.7) Basophils # (Auto) 0.1 x10^3/uL (0.0-0.2) 0.0 x10^3/uL (0.0-0.2) Sodium Level 141 mmol/L (136-145) 142 mmol/L (136-145) Potassium Level 2.8 mmol/L (3.5-5.1) 3.1 mmol/L (3.5-5.1) Chloride Level 100 mmol/L (98-107) 103 mmol/L (98-107) Carbon Dioxide Level 30 mmol/L (21-32) 28 mmol/L (21-32) Anion Gap 11 (6-14) 11 (6-14) Blood Urea Nitrogen 20 mg/dL (8-26) 10 mg/dL (8-26) Creatinine 0.8 mg/dL (0.7-1.3) 0.7 mg/dL (0.7-1.3) Estimated GFR (Cockcroft-Gault) 106.0 123.7 BUN/Creatinine Ratio 25 (6-20) 14 (6-20) Glucose Level 91 mg/dL (70-99) 100 mg/dL (70-99) Calcium Level 8.6 mg/dL (8.5-10.1) 8.9 mg/dL (8.5-10.1) Iron Level 52 ug/dL (65-175) Total Iron Binding Capacity 214 ug/dL (250-450) Iron Saturation 24 % (15-34) Total Bilirubin 2.5 mg/dL (0.2-1.0) 1.7 mg/dL (0.2-1.0) Aspartate Amino Transf (AST/SGOT) 145 U/L (15-37) 162 U/L (15-37) Alanine Aminotransferase (ALT/SGPT) 92 U/L (16-63) 147 U/L (16-63) Alkaline Phosphatase 72 U/L (46-116) 75 U/L (46-116) Total Protein 6.6 g/dL (6.4-8.2) 6.6 g/dL (6.4-8.2) Albumin 3.5 g/dL (3.4-5.0) 3.4 g/dL (3.4-5.0) Albumin/Globulin Ratio 1.1 (1.0-1.7) 1.1 (1.0-1.7) Segmented Neutrophils % 44 % (35-66) Band Neutrophils % 1 % (0-9) Lymphocytes % 47 % (24-48) Monocytes % 3 % (0-10) Eosinophils % 4 % (0-5) Basophils % 1 % (0-3) Nucleated Red Blood Cells 1 Platelet Estimate Adequate (ADEQUATE) Magnesium Level 1.9 mg/dL (1.8-2.4) Laboratory Tests Test 12/26/18 04:43 White Blood Count 8.2 x10^3/uL (4.0-11.0) Red Blood Count 5.60 x10^6/uL (4.30-5.70) Hemoglobin 11.1 g/dL (13.0-17.5) Hematocrit 34.0 % (39.0-53.0) Mean Corpuscular Volume 61 fL (79-100) Mean Corpuscular Hemoglobin 20 pg (25-35) Mean Corpuscular Hemoglobin Concent 33 g/dL (31-37) Red Cell Distribution Width 16.9 % (11.5-14.5) Platelet Count 143 x10^3/uL (140-400) Neutrophils (%) (Auto) 58 % (31-73) Lymphocytes (%) (Auto) 32 % (24-48) Monocytes (%) (Auto) 7 % (0-9) Eosinophils (%) (Auto) 2 % (0-3) Basophils (%) (Auto) 1 % (0-3) Neutrophils # (Auto) 4.7 x10^3uL (1.8-7.7) Lymphocytes # (Auto) 2.7 x10^3/uL (1.0-4.8) Monocytes # (Auto) 0.6 x10^3/uL (0.0-1.1) Eosinophils # (Auto) 0.2 x10^3/uL (0.0-0.7) Basophils # (Auto) 0.0 x10^3/uL (0.0-0.2) Segmented Neutrophils % 44 % (35-66) Band Neutrophils % 1 % (0-9) Lymphocytes % 47 % (24-48) Monocytes % 3 % (0-10) Eosinophils % 4 % (0-5) Basophils % 1 % (0-3) Nucleated Red Blood Cells 1 Platelet Estimate Adequate (ADEQUATE) Sodium Level 142 mmol/L (136-145) Potassium Level 3.1 mmol/L (3.5-5.1) Chloride Level 103 mmol/L (98-107) Carbon Dioxide Level 28 mmol/L (21-32) Anion Gap 11 (6-14) Blood Urea Nitrogen 10 mg/dL (8-26) Creatinine 0.7 mg/dL (0.7-1.3) Estimated GFR (Cockcroft-Gault) 123.7 BUN/Creatinine Ratio 14 (6-20) Glucose Level 100 mg/dL (70-99) Calcium Level 8.9 mg/dL (8.5-10.1) Magnesium Level 1.9 mg/dL (1.8-2.4) Total Bilirubin 1.7 mg/dL (0.2-1.0) Aspartate Amino Transf (AST/SGOT) 162 U/L (15-37) Alanine Aminotransferase (ALT/SGPT) 147 U/L (16-63) Alkaline Phosphatase 75 U/L (46-116) Total Protein 6.6 g/dL (6.4-8.2) Albumin 3.4 g/dL (3.4-5.0) Albumin/Globulin Ratio 1.1 (1.0-1.7) Brief Hospital Course Mr. Garnett is a 43 old white male who drinks alcohol admitted for severe alcohol intake withdrawal. transaminitis, thrombocytosis reactive because of binge drinking. Had hypokalemia that needed to be replaced for days. Transaminitis too, comanaged with GI. No further recs aside from supportive treatment and to avoid alcohol. Patient will go back to longterm today. Eating well now, gait steady. Medically cleared to go back to residential Discharge Information Condition at Discharge: Improved, Stable Disposition/Orders: Other (longterm) Scheduled Chlordiazepoxide/Clidinium Br (Librax Capsule) 1 Each Capsule, 1 CAP PO TID for alcohol withdrawal, #90 Ref 3 Prescribed by: ESPINOZA CHAKRABORTY on 12/26/18 0939 Potassium Chloride (Klor-Con M20) 20 Meq Tab.er.prt, 40 MEQ PO [id number] for low K MDD 1 for 5 Days, #10 Prescribed by: ESPINOZA CHAKRABORTY on 12/26/18 0939 ESPINOZA CHAKRABORTY MD Dec 26, 2018 09:42
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
--- NOTE | 2018-12-26 10:51 | NUR ---
Patient discharged. Patient's uncle is here to give him a ride. PIV an heart monitor removed and escorted patient to front entrance into a private vehicle.
[2018-12-29 17:13] LABS: HGB ELECROPHORESIS COMMENT Note: (.)
== END 2018-12-26 10:55 | disposition home or self-care (01) | DRG 432 ==
LOC: ER 01:48 → 2 SOUTH 03:27
PROVIDERS: ADMIT Family Medicine; ATTEND Family Medicine
DX: K70.10 Alcoholic hepatitis without ascites (principal); K85.20 Alcohol induced acute pancreatitis without necrosis or infection; F10.239 Alcohol dependence with withdrawal, unspecified; F17.210 Nicotine dependence, cigarettes, uncomplicated; R71.8 Other abnormality of red blood cells; F41.9 Anxiety disorder, unspecified; E87.6 Hypokalemia; F32.9 Major depressive disorder, single episode, unspecified; I10 Essential (primary) hypertension; Z79.899 Other long term (current) drug therapy; Z81.1 Family history of alcohol abuse and dependence; Z91.19 Patient's noncompliance with other medical treatment and regimen; Z80.0 Family history of malignant neoplasm of digestive organs
CPT/HCPCS: 36415; 76700; 80053; 80307; 83020; 83540; 83550; 83690; 83735; 85007; 85025; 86705; 86709; 86803; 87340; 96361; 96365; G0480; J3480; J7030; 99285-25